=== PATIENT | male | born 1940 | race Caucasian/White ===

== ENCOUNTER → 2017-04-25 | Outpatient (CLI) | payer MEDICARE, OTHER ==
[~2017-04-25] MED LIST: METO25TA9 PO; OMNIPAQUE 350 MG/ML, 100ML BOTTLE ONE; RIVA15TA PO; TIMO2.5D3 EACHEYE
== END | disposition home or self-care (01) ==
LOC: CFH 09:08
PROVIDERS: ATTEND Nurse Practitioner Family
DX: I71.1 Thoracic aortic aneurysm, ruptured (principal); I71.01 Dissection of thoracic aorta; I71.4 Abdominal aortic aneurysm, without rupture; I72.3 Aneurysm of iliac artery
CPT/HCPCS: 71275; 74174; 82565; Q9967

== ENCOUNTER 2017-04-28 11:30 | Inpatient (IN) | payer MEDICARE, OTHER ==
[~2017-04-28] VITALS: Ht 182.9 cm; Wt 68.8 kg
[2017-04-28] MEDS ORDERED: SODIUM CHLORIDE 0.9% 1,000 ML IV ONE (12:12)
[2017-04-28] MEDS ORDERED: RIVA15TA PO (12:29)
[2017-04-28] MEDS ORDERED: SODIUM CHLORIDE 0.9% 1,000ML IVBOLUS ONE (12:30)
[2017-04-28] MEDS ORDERED: METO25TA9 PO (12:30)
[2017-04-28] MEDS ORDERED: PLEASE ENTER ALLERGIES MC SCH ×2 (12:30)
[2017-04-28 13:07] LABS: ASPARTATE AMINO TRANSFERASE 13 U/L (15-37); BLOOD UREA NITROGEN 17 mg/dL (7-18)
[2017-04-28] MEDS ORDERED: TIMO2.5D3 EACHEYE (13:20)
[2017-04-28] MEDS ORDERED: ACETAMINOPHEN 325 MG TABLET PO PRN (15:30)
[2017-04-28] MEDS ORDERED: POLYETHYLENE GLYCOL 17 GM PACKET PO PRN (15:30)
[2017-04-28] MEDS ORDERED: DOCUSATE 100 MG CAPSULE PO PRN (15:30)
[2017-04-28] MEDS ORDERED: ONDANSETRON 2MG/ML, 2ML IVPush PRN (15:30)
[2017-04-28] MEDS ORDERED: BISACODYL 10 MG SUPP PR PRN (15:30)
[2017-04-28] MEDS: SODIUM CHLORIDE FLUSH 3ML SYRINGE IVF SCH (21:00)
[2017-04-28] MEDS: PANTOPRAZOLE 40 MG IV IVPush SCH (22:26)
[2017-04-28 22:34] VITALS: BP 116/70
[2017-04-29 06:17] LABS: BLOOD UREA NITROGEN 12 mg/dL (7-18)
[2017-04-29 07:23] VITALS: BP 115/73
[2017-04-29] MEDS: CLARITHROMYCIN 500 MG TABLET PO SCH ×2 (09:40→20:16)
[2017-04-29] MEDS: AMOXICILLIN 500 MG CAPSULE PO SCH ×2 (09:40→20:16)
[2017-04-29] MEDS: METOPROLOL SUCCINATE 25 MG TAB.ER.24H PO SCH (09:40)
[2017-04-29] MEDS: SODIUM CHLORIDE FLUSH 3ML SYRINGE IVF SCH ×2 (09:40→19:36)
[2017-04-29] MEDS: TIMOLOL OPHTH 0.5%, 5ML EACHEYE SCH ×2 (09:41→19:36)
[2017-04-29] MEDS: PANTOPRAZOLE 40 MG IV IVPush SCH ×2 (09:41→20:16)
[2017-04-29 13:48] VITALS: BP 133/77
[2017-04-29] MEDS: MOVIPREP POWDER 1 PREP KIT PO SCH (19:36)
[2017-04-29 20:00] VITALS: BP 116/71
[2017-04-30 00:48] VITALS: BP 130/68
[2017-04-30] MEDS: MOVIPREP POWDER 1 PREP KIT PO SCH (04:23)
[2017-04-30 08:25] VITALS: BP 132/79
[2017-04-30] MEDS: SODIUM CHLORIDE FLUSH 3ML SYRINGE IVF SCH (08:26)
[2017-04-30] MEDS: TIMOLOL OPHTH 0.5%, 5ML EACHEYE SCH (08:26)
[2017-04-30] MEDS: PANTOPRAZOLE 40 MG IV IVPush SCH (08:27)
[2017-04-30] MEDS: AMOXICILLIN 500 MG CAPSULE PO SCH (08:27)
[2017-04-30] MEDS: CLARITHROMYCIN 500 MG TABLET PO SCH (08:27)
[2017-04-30] MEDS: METOPROLOL SUCCINATE 25 MG TAB.ER.24H PO SCH (08:27)
[2017-04-30] MEDS ORDERED: FENTANYL PF 100 MCG/2ML ONE (09:11)
[2017-04-30] MEDS ORDERED: MIDAZOLAM 1 MG/ML, 5ML ONE (09:11)
[2017-04-30 12:35] VITALS: BP 109/71
[2017-04-30] MEDS ORDERED: AMOX-291 PO (15:34)
[2017-04-30] MEDS ORDERED: OMEP-110 PO (15:34)
[2017-04-30] MEDS ORDERED: CLAR500T PO (15:34)
[2017-05-01 06:07] LABS: DILUTE PROTHROMBIN TIME (DPT) 45.8 sec (0.0-55.0); LUPUS REFLEX INTERPRETATION Comment: (.); PTT-LA 37.4 sec (0.0-43.6)
[2017-05-01 17:06] LABS: FACTOR II DNA ANALYSIS Negative (.)
== END 2017-04-30 17:05 | disposition home or self-care (01) | DRG 392 ==
LOC: ED 14:42 → INTOOBSV 14:43 → EDIP 14:43 → SUATTDRO 14:47 → ED 14:55 → 4EST 18:16 → OBSVTOIN 04-29 15:30
PROC: 0DJ08ZZ Inspection of Upper Intestinal Tract, Via Natural or Artificial Opening Endoscopic (ICD-10-PCS; principal; 2017-04-30)
PROC: 0DJD8ZZ Inspection of Lower Intestinal Tract, Via Natural or Artificial Opening Endoscopic (ICD-10-PCS; 2017-04-30)
DX: K29.40 Chronic atrophic gastritis without bleeding (principal); K92.2 Gastrointestinal hemorrhage, unspecified; I11.9 Hypertensive heart disease without heart failure; B96.81 Helicobacter pylori [H. pylori] as the cause of diseases classified elsewhere; D64.9 Anemia, unspecified; H40.9 Unspecified glaucoma; I35.9 Nonrheumatic aortic valve disorder, unspecified; I71.4 Abdominal aortic aneurysm, without rupture; I72.3 Aneurysm of iliac artery; I73.9 Peripheral vascular disease, unspecified; K57.30 Diverticulosis of large intestine without perforation or abscess without bleeding; M19.019 Primary osteoarthritis, unspecified shoulder; N40.0 Benign prostatic hyperplasia without lower urinary tract symptoms; Z79.01 Long term (current) use of anticoagulants; Z80.0 Family history of malignant neoplasm of digestive organs; Z86.711 Personal history of pulmonary embolism; Z86.79 Personal history of other diseases of the circulatory system; Z87.891 Personal history of nicotine dependence; Z95.2 Presence of prosthetic heart valve; Z95.3 Presence of xenogenic heart valve; Z90.89 Acquired absence of other organs
CPT/HCPCS: 36415; 71010; 80048; 80053; 81003; 81240; 81241; 83690; 84153; 85014; 85018; 85025; 85300; 85303; 85306; 85610; 85613; 85670; 85705; 85732; 86147; 86677; 86850; 86900; 86923; 93005; 93970; 96360; 96361; G0378; J2250; J3010; C9113; J7030

== ENCOUNTER → 2017-09-02 | Outpatient (CLI) | payer MEDICARE, OTHER ==
[~2017-09-02] MED LIST changes: +AMOX-291 PO; +CLAR500T PO; +METO-282 PO; -METO25TA9 PO; +OMEP-110 PO
== END | disposition home or self-care (01) ==
LOC: CFH 09:19
PROVIDERS: ATTEND Internal Medicine Cardiovascular Disease
DX: I71.02 Dissection of abdominal aorta (principal); I71.2 Thoracic aortic aneurysm, without rupture; I26.99 Other pulmonary embolism without acute cor pulmonale; Q25.49 Other congenital malformations of aorta
CPT/HCPCS: 71275; 74175; 82565; Q9967

== ENCOUNTER → 2018-06-02 | Outpatient (CLI) | payer MEDICARE, OTHER | END | disposition home or self-care (01) | LOC: CFH 10:43 | PROVIDERS: ATTEND Internal Medicine Cardiovascular Disease | DX: I72.3 Aneurysm of iliac artery (principal); I70.0 Atherosclerosis of aorta; I71.4 Abdominal aortic aneurysm, without rupture; I71.2 Thoracic aortic aneurysm, without rupture; I26.99 Other pulmonary embolism without acute cor pulmonale; K57.30 Diverticulosis of large intestine without perforation or abscess without bleeding | CPT/HCPCS: 71275; 74175; 82565; Q9967 ==

== ENCOUNTER → 2018-11-30 | Outpatient (CLI) | payer MEDICARE, OTHER | END | disposition home or self-care (01) | LOC: CFH 09:19 | PROVIDERS: ATTEND Internal Medicine Cardiovascular Disease | DX: I71.02 Dissection of abdominal aorta (principal); I71.2 Thoracic aortic aneurysm, without rupture; I72.3 Aneurysm of iliac artery; J84.10 Pulmonary fibrosis, unspecified; M47.819 Spondylosis without myelopathy or radiculopathy, site unspecified; F10.10 Alcohol abuse, uncomplicated; Z85.820 Personal history of malignant melanoma of skin; Z87.891 Personal history of nicotine dependence | CPT/HCPCS: 71275; 74175; 82565; Q9967 ==